=== PATIENT | male | born 1970 | race American Indian/Alaskan Native ===

== ENCOUNTER 2016-10-21 08:56 | Emergency (ER) | payer OTHER ==
[2016-10-21 09:15] VITALS: BP 156/98
--- NOTE | 2016-10-21 10:07 | Emergency Department Report ---
Entered by BRIDGER CHEEMA, acting as scribe for ZULMA DILLON NP. Stated Complaint: BACK PAIN Time Seen by Provider: 10/21/16 09:15 - HPI History of Present Illness: 46 y/o male presents c/o lower back pain from lifting weights that started yesterday and radiates down his left gluteus. Pt denies incontinence or dysuria. He is ambulatory and denies trauma to the area. - [employer], in fatigues vss nad standing in triage no dysuria - ROS Review of Systems: as noted in HPI. - Exam Vital Signs: Vital Signs 10/21/16 09:08 Temperature 97.7 F Pulse Rate 94 H Respiratory 16 Rate Blood Pressure 156/98 O2 Sat by Pulse 96 Oximetry Physical Exam: as noted MSE screening note: Focused history and physical exam performed. Due to findings the following was ordered: ED Disposition for MSE Condition: Stable This documentation as recorded by the scribe,BRIDGER CHEEMA,accurately reflects the service I personally performed and the decisions made by ,ZULMA DILLON NP.
[2016-10-21] MEDS ORDERED: TORADOL IM ONE (10:49)
--- NOTE | 2016-10-21 11:20 | Emergency Department Report ---
ED Back Pain/Injury HPI - General Chief Complaint: Back Pain/Injury Stated Complaint: BACK PAIN Time Seen by Provider: 10/21/16 10:44 Source: patient Mode of arrival: Ambulatory Limitations: No Limitations - History of Present Illness Initial Comments: PT states he was working out last week, Thursday, and he hurt his back. PT thought his back pain would improve with rest. PT states he has not taken any pain medication. PT states his back pain has been getting gradually worse. PT states he had an appointment with PCP today at 1400 but he cancelled it because his pain increased while sitting at desk at work. PT states the pain goes across his low back and radiates down to buttocks radha MD Complaint: back pain, back injury Onset/Timin -: Gradual, week(s) Similar Symptoms Previously: No Place: work (today the pain worsened while at work ) Radiation: buttocks Severity scale (0 -10): 10 Quality: sharp, aching Consistency: constant Improves With: none Worsens With: sitting upright Context: while lifting (wieghts ) Associated Symptoms: denies: chest pain, numbness, difficulty walking, difficulty urinating, incontinence, abdominal pain Treatments Prior to Arrival: other (none. ) - Related Data Home Medications Medication Instructions Recorded Confirmed Last Taken Multivitamin Tab [Multiple Vitamin 1 tab PO QDAY 10/21/16 10/21/16 Unknown TAB (Theragran)] Simvastatin [Zocor TAB] 40 mg PO QDAY 10/21/16 10/21/16 Unknown ED Review of Systems ROS: Stated complaint: BACK PAIN Other details as noted in HPI Comment: All other systems reviewed and negative Constitutional: denies: chills, fever Gastrointestinal: denies: abdominal pain, nausea, vomiting Genitourinary: other (pt states at times low back pain radiates towards groin but denies any testicle pain or swelling ). denies: dysuria, discharge, testicular mass Musculoskeletal: back pain, myalgia Neurological: denies: weakness, numbness, paresthesias, abnormal gait ED Past Medical Hx - Past Medical History Previous Medical History?: Yes Additional medical history: High Cholesterol - Surgical History Past Surgical History?: No - Social History Smoking Status: Current Some Day Smoker Substance Use Type: Alcohol - Medications Home Medications: Home Medications Medication Instructions Recorded Confirmed Last Taken Type Multivitamin Tab [Multiple Vitamin 1 tab PO QDAY 10/21/16 10/21/16 Unknown History TAB (Theragran)] Simvastatin [Zocor TAB] 40 mg PO QDAY 10/21/16 10/21/16 Unknown History ED Physical Exam - General Limitations: No Limitations General appearance: alert, in no apparent distress - Head Head exam: Present: atraumatic, normocephalic, normal inspection - Eye Eye exam: Present: normal appearance, EOMI. Absent: conjunctival injection - ENT ENT exam: Present: normal exam - Neck Neck exam: Present: normal inspection, full ROM. Absent: tenderness - Respiratory Respiratory exam: Present: normal lung sounds bilaterally. Absent: respiratory distress, wheezes, chest wall tenderness - Cardiovascular Cardiovascular Exam: Present: regular rate, normal rhythm, normal heart sounds - GI/Abdominal GI/Abdominal exam: Present: soft. Absent: tenderness, guarding, rebound - Extremities Exam Extremities exam: Present: normal inspection, full ROM, normal capillary refill - Back Exam Back exam: Present: normal inspection, full ROM, CVA tenderness (R), CVA tenderness (L), muscle spasm, other (pt reports pain across lumbar spine, no point tenderness ). Absent: tenderness, paraspinal tenderness, vertebral tenderness - Neurological Exam Neurological exam: Present: alert, oriented X3, normal gait - Psychiatric Psychiatric exam: Present: normal affect, normal mood - Skin Skin exam: Present: warm, dry, intact ED Course Vital Signs 10/21/16 09:08 Temperature 97.7 F Pulse Rate 94 H Respiratory 16 Rate Blood Pressure 156/98 O2 Sat by Pulse 96 Oximetry - Reevaluation(s) Reevaluation #1: 10/21/16 12:12 PT states his back pain has decreased s/p meds. PT has no questions at this time. PT is aware he will need to follow up with PCP and have his bp rechecked. PT advised no heavy lifting at this time. - Pulse Oximetry Interpretation Digit-Finger Initial Pulse Oximetry Readin Actions Taken: none ED Medical Decision Making - Differential Diagnosis strain, lbp, sciatica Critical Care Time: No Critical care attestation.: If time is entered above; I have spent that time in minutes in the direct care of this critically ill patient, excluding procedure time. ED Disposition Clinical Impression: Muscle spasm Acute low back pain Qualifiers: Back pain laterality: bilateral Sciatica presence: with sciatica Sciatica laterality: bilateral sciatica Qualified Code(s): M54.42 - Lumbago with sciatica , left side Disposition: DISCHARGED TO HOME OR SELFCARE Is pt being admited?: No Does the pt Need Aspirin: No Condition: Stable Instructions: Sciatica (ED), Low Back Strain (ED), Acute Low Back Pain (ED), Lumbar Radiculopathy (ED) Additional Instructions: Recheck your BP on your follow up No driving or ETOH after Robaxin or Ultram Referrals: PRIMARY CARE, [Primary Care Provider] - 3-5 Days Forms: Work/School Release Form(ED) Time of Disposition: 12:14
== END 2016-10-21 12:22 | disposition home or self-care (01) ==
LOC: ED 08:56
DX: M62.830 Muscle spasm of back (principal); M54.42 Lumbago with sciatica, left side; E78.00 Pure hypercholesterolemia, unspecified; F17.200 Nicotine dependence, unspecified, uncomplicated
CPT/HCPCS: 96372; 99282; J1885; J2930